=== PATIENT | female | born 1950 | race Two or more races ===

== ENCOUNTER 2016-08-16 00:28 | Inpatient (IN) | payer MEDICAID, MEDICARE ==
[~2016-08-16] VITALS: Ht 154.9 cm; Wt 61.9 kg
[~2016-08-16 00:28] MED LIST: ACET500C PO; ALBUAER3 IN; ATE50T GT; ERGO1CAP23 PO; FLUO20CA90 PO; FLUT100A INH; METF-316; TRAZ100T2 PO
[2016-08-16] MEDS ORDERED: SODIUM CHLORIDE 0.9% 1,000 ML IVB ONE (01:30)
[2016-08-16] MEDS ORDERED: HYDROmorphone HCL 2 MG/ML VL IV ONE ×2 (01:30→05:00)
[2016-08-16] MEDS ORDERED: ONDANSETRON HCL 4 MG/2 ML VIAL IV ONE ×2 (01:30→16:45)
[2016-08-16 02:12] LABS: Basophils # (auto) 0 uL; DEFINITIVE VIEW TRANSMISSION; Eosinophils # (auto) 0 uL; Mean Corpuscular Hemoglobin 36.9 pg (28.0-32.0); Mean Platelet Volume 7.6 fL (7.4-10.4)
[2016-08-16 02:16] LABS: Basophils % (auto) 0.4 % (0.0-2.0); Hematocrit 39.6 % (36.0-46.0); Hemoglobin 13.3 g/dL (12.2-16.2); Lymphocytes # (auto) 0.7 uL; Mean Corpuscular Hgb Conc. 33.5 g/dL (32.0-36.0); Mean Corpuscular Volume 110.1 fL (80.0-100.0); Monocytes # (auto) 0.5 uL; Neutrophils # (auto) 7.5 uL; Neutrophils % (auto) 85.6 % (37.0-80.0); Platelet Count (auto) 206 10^3/uL (140-450); Red Cell Distribution Width 13.8 % (11.6-16.0); White Blood Cell 8.7 10^3/uL (4.4-10.8)
[2016-08-16 02:29] LABS: INR 1.15 (0.9-1.15); Partial Thromboplastin Time 27.6 sec (22.64-33.71)
[2016-08-16 02:34] LABS: Prothrombin Time 12.4 sec (9.37-12.3)
[2016-08-16 02:35] LABS: Albumin 3.2 g/dL (3.4-5.0); BUN/Creatinine Ratio 16.7; Calcium 7.9 mg/dL (8.5-10.1); Magnesium 1.8 mg/dL (1.6-2.6); Potassium 3.6 mmol/L (3.5-5.1)
[2016-08-16 02:38] LABS: Bilirubin, Total 1.2 mg/dL (0.2-1.0); Total Protein 7.2 g/dL (6.4-8.2)
[2016-08-16 02:44] LABS: B-Type Natriuretic Peptide 291.64 pg/mL (0-100)
[2016-08-16 02:45] LABS: Temperature: 22.9 C (20.0-25.0)
[2016-08-16] MEDS ORDERED: DEXTROSE (50%) 50ML SYRG IV PRN (05:45)
[2016-08-16] MEDS ORDERED: ACETAMINOPHEN 325 MG TAB PO PRN (05:45)
[2016-08-16] MEDS ORDERED: ALBUTEROL SULF 2.5 MG/0.5ML(0.5%) NEB SOLN NEB PRN (05:45)
[2016-08-16] MEDS ORDERED: TEMAZEPAM 15 MG CAP PO PRN (05:45)
[2016-08-16] MEDS: ACCU-CHEK COMFORT CURVE STRIP VI SCH ×3 (06:00→18:00)
[2016-08-16] MEDS: InsuLIN REG 1unit/0.01ml Soln (100units/ml) SC SCH ×3 (06:00→19:10)
[2016-08-16 08:46] VITALS: BP 110/72
[2016-08-16] MEDS ORDERED: METF-312 PO (09:00)
[2016-08-16] MEDS: ONDANSETRON HCL 4 MG/2 ML VIAL IV PRN ×2 (09:18→13:49)
[2016-08-16] MEDS: MORPHINE SULF INJ 2 MG/ML SYRINGE 1ML IV PRN ×2 (09:18→13:50)
[2016-08-16] MEDS ORDERED: ENOXAPARIN SOD 30 MG/0.3 ML SYRINGE SC SCH (10:00)
[2016-08-16] MEDS ORDERED: ENOXAPARIN SOD 40 MG/0.4 ML SYRINGE SC SCH (10:00)
[2016-08-16] MEDS: ERGOCALCIFEROL 50,000 UNIT(1.25MG) CAP PO SCH (10:30)
[2016-08-16] MEDS: FAMOTIDINE 20 MG TAB PO SCH ×2 (10:51→21:33)
[2016-08-16] MEDS: FLUoxetine HCL 20 MG CAP PO SCH (10:52)
[2016-08-16] MEDS: amLODIPine BESYLATE 5 MG TAB PO SCH (10:52)
[2016-08-16] MEDS: METOPROLOL TARTRATE 25 MG TAB PO SCH ×2 (10:52→21:33)
[2016-08-16 11:56] LABS: Urine RBC None Seen /hpf (0 - 4)
[2016-08-16 12:13] VITALS: BP 110/72
[2016-08-16 12:15] LABS: Urine Bilirubin Negative (Negative); Urine Blood Negative /uL (Negative); Urine Color Yellow (Yellow); Urine Glucose Normal (Normal); Urine Ketone Negative (Negative); Urine Nitrite Negative (Negative); Urine Squamous Epithelial Cell FEW /hpf (<5); Urine Urobilinogen Normal (Negative); Urine pH 6.5 (5.0-8.0)
[2016-08-16 13:00] VITALS: BP 119/71
[2016-08-16] MEDS ORDERED: MEPERIDINE HCL (50 MG/ML) 1 ML VIAL ONE (16:01)
[2016-08-16] MEDS ORDERED: MIDAZOLAM HCL 1MG/1ML-2 ML VIAL ONE (16:01)
[2016-08-16] MEDS ORDERED: fentaNYL CITRATE 100 MCG/2 ML VL ONE (16:01)
[2016-08-16] MEDS ORDERED: PROPOFOL 10 MG/ML 20 ML IV ONE (16:19)
[2016-08-16] MEDS ORDERED: DEXAMETHASONE SOD PHOS 10MG/1ML VIAL INJ ONE (16:19)
[2016-08-16] MEDS ORDERED: SUCCINYLCHOLINE CHLORIDE 20 MG/ML 10ML VIAL IV ONE (16:41)
[2016-08-16] MEDS ORDERED: LABETALOL HCL 5 MG/ML 4ML SYRINGE IV PRN (16:45)
[2016-08-16] MEDS ORDERED: MIDAZOLAM HCL 1MG/1ML-2 ML VIAL IV PRN (16:45)
[2016-08-16] MEDS ORDERED: hydrALAZINE HCL 20 MG/ML VL IV PRN (16:45)
[2016-08-16] MEDS ORDERED: KETOROLAC TROMETH 30 MG/ML 1ML VIAL IV ONE (16:45)
[2016-08-16] MEDS ORDERED: MORPHINE SULF INJ 2 MG/ML SYRINGE 1ML IV PRN (16:45)
[2016-08-16] MEDS ORDERED: ePHEDrine SULFATE 50 MG/ML AMP IV PRN (16:45)
[2016-08-16] MEDS ORDERED: HYDROmorphone HCL 2 MG/ML VL IV PRN ×2 (16:45→18:30)
[2016-08-16] MEDS ORDERED: PHENYLEPHRINE HCL 10 MG/ML VL ONE (16:55)
[2016-08-16] MEDS ORDERED: ONDANSETRON HCL 4 MG/2 ML VIAL IV PRN (18:30)
[2016-08-16 20:00] VITALS: BP 89/55
[2016-08-16] MEDS: traZODone HCL 50 MG TAB PO SCH (21:30)
[2016-08-16 22:08] VITALS: BP 104/64
[2016-08-17] VITALS (8 sets, daily range): BP systolic 89–120; BP diastolic 47–71
[2016-08-17] MEDS: ceFAZolin 1GM/50ML D5W 50 ML IV SCH ×5 (00:31→23:12)
[2016-08-17] MEDS: InsuLIN REG 1unit/0.01ml Soln (100units/ml) SC SCH ×4 (00:31→18:00)
[2016-08-17] MEDS: ACCU-CHEK COMFORT CURVE STRIP VI SCH ×4 (06:10→18:00)
[2016-08-17 06:57] LABS: Albumin 2.5 g/dL (3.4-5.0); BUN/Creatinine Ratio 15.6; Calcium 7.3 mg/dL (8.5-10.1); Potassium 3.9 mmol/L (3.5-5.1)
[2016-08-17 07:11] LABS: Bilirubin, Total 0.9 mg/dL (0.2-1.0); Total Protein 5.8 g/dL (6.4-8.2)
[2016-08-17 09:36] LABS: Basophils # (auto) 0 uL; Basophils % (auto) 0.2 % (0.0-2.0); DEFINITIVE VIEW TRANSMISSION; Eosinophils # (auto) 0.1 uL; Eosinophils % (auto) 0.8 % (0.0-7.0); Hemoglobin 10.1 g/dL (12.2-16.2); Lymphocytes % (auto) 11.1 % (10.0-50.0); Mean Corpuscular Hemoglobin 37.3 pg (28.0-32.0); Mean Corpuscular Hgb Conc. 33.7 g/dL (32.0-36.0); Mean Corpuscular Volume 110.7 fL (80.0-100.0); Mean Platelet Volume 8.4 fL (7.4-10.4); Monocytes # (auto) 0.9 uL; Neutrophils % (auto) 77.9 % (37.0-80.0); Platelet Count (auto) 161 10^3/uL (140-450); Red Cell Distribution Width 13.7 % (11.6-16.0)
[2016-08-17] MEDS: amLODIPine BESYLATE 5 MG TAB PO SCH (10:00)
[2016-08-17] MEDS ORDERED: ENOXAPARIN SOD 40 MG/0.4 ML SYRINGE SC SCH (10:00)
[2016-08-17] MEDS: ENOXAPARIN SOD 40 MG/0.4 ML SYRINGE SC SCH (10:08)
[2016-08-17] MEDS: FLUoxetine HCL 20 MG CAP PO SCH (10:08)
[2016-08-17] MEDS: FAMOTIDINE 20 MG TAB PO SCH ×2 (10:08→21:17)
[2016-08-17] MEDS: METOPROLOL TARTRATE 25 MG TAB PO SCH ×2 (10:14→21:17)
[2016-08-17] MEDS: MORPHINE SULF INJ 2 MG/ML SYRINGE 1ML IV PRN (10:15)
[2016-08-17] MEDS: NICOTINE 21MG/24 HR TOPICAL PATCH TD SCH (17:30)
[2016-08-17] MEDS: HYDROcodone-ACET 5/325MG TAB PO PRN (20:44)
[2016-08-17] MEDS: traZODone HCL 50 MG TAB PO SCH (21:16)
[2016-08-18] VITALS (12 sets, daily range): BP systolic 99–118; BP diastolic 53–69
[2016-08-18] MEDS: ACCU-CHEK COMFORT CURVE STRIP VI SCH ×5 (00:13→23:44)
[2016-08-18] MEDS: ceFAZolin 1GM/50ML D5W 50 ML IV SCH ×4 (01:23→18:17)
[2016-08-18] MEDS: InsuLIN REG 1unit/0.01ml Soln (100units/ml) SC SCH ×5 (05:26→23:44)
[2016-08-18 07:39] LABS: Hematocrit 24.3 % (36.0-46.0); Hemoglobin 8.2 g/dL (12.2-16.2)
[2016-08-18] MEDS: HYDROcodone-ACET 5/325MG TAB PO PRN ×3 (08:35→21:10)
[2016-08-18] MEDS: METOPROLOL TARTRATE 25 MG TAB PO SCH ×2 (09:40→21:18)
[2016-08-18] MEDS: FAMOTIDINE 20 MG TAB PO SCH ×2 (09:42→21:11)
[2016-08-18] MEDS: FLUoxetine HCL 20 MG CAP PO SCH (09:42)
[2016-08-18] MEDS: NICOTINE 21MG/24 HR TOPICAL PATCH TD SCH (09:46)
[2016-08-18] MEDS: amLODIPine BESYLATE 5 MG TAB PO SCH (09:52)
[2016-08-18] MEDS: ENOXAPARIN SOD 40 MG/0.4 ML SYRINGE SC SCH (09:52)
[2016-08-18] MEDS: MORPHINE SULF INJ 2 MG/ML SYRINGE 1ML IV PRN (16:47)
[2016-08-18] MEDS ORDERED: FUROSEMIDE 20 MG/2 ML VIAL IV ONE (18:00)
[2016-08-18] MEDS: traZODone HCL 50 MG TAB PO SCH (21:11)
[2016-08-19] MEDS: MORPHINE SULF INJ 2 MG/ML SYRINGE 1ML IV PRN ×5 (03:26→22:05)
[2016-08-19 05:00] VITALS: BP 99/67
[2016-08-19] MEDS: InsuLIN REG 1unit/0.01ml Soln (100units/ml) SC SCH ×4 (05:25→23:45)
[2016-08-19] MEDS: ACCU-CHEK COMFORT CURVE STRIP VI SCH ×4 (05:25→23:45)
[2016-08-19 08:02] LABS: Hematocrit 33.3 % (36.0-46.0); Hemoglobin 11.2 g/dL (12.2-16.2)
[2016-08-19 09:00] VITALS: BP 97/60
[2016-08-19] MEDS: FLUoxetine HCL 20 MG CAP PO SCH (10:00)
[2016-08-19] MEDS: FAMOTIDINE 20 MG TAB PO SCH ×2 (10:00→21:09)
[2016-08-19] MEDS: amLODIPine BESYLATE 5 MG TAB PO SCH (10:00)
[2016-08-19] MEDS: NICOTINE 21MG/24 HR TOPICAL PATCH TD SCH (10:00)
[2016-08-19] MEDS: ENOXAPARIN SOD 40 MG/0.4 ML SYRINGE SC SCH ×2 (10:00)
[2016-08-19] MEDS: METOPROLOL TARTRATE 25 MG TAB PO SCH ×2 (10:00→21:09)
[2016-08-19] MEDS: ONDANSETRON HCL 4 MG/2 ML VIAL IV PRN ×2 (12:32→17:59)
[2016-08-19 13:00] VITALS: BP 98/55
[2016-08-19 17:00] VITALS: BP_SYST 104; BP_SYST 196; BP_DIAS 58; BP_DIAS 84
[2016-08-19] MEDS: traZODone HCL 50 MG TAB PO SCH (21:09)
[2016-08-19 22:00] VITALS: BP 96/58
[2016-08-20 01:03] VITALS: BP 96/58
[2016-08-20] MEDS: MORPHINE SULF INJ 2 MG/ML SYRINGE 1ML IV PRN ×4 (03:25→21:13)
[2016-08-20 05:00] VITALS: BP 101/66
[2016-08-20] MEDS: ACCU-CHEK COMFORT CURVE STRIP VI SCH ×4 (05:36→23:30)
[2016-08-20] MEDS: InsuLIN REG 1unit/0.01ml Soln (100units/ml) SC SCH ×4 (05:36→23:30)
[2016-08-20 08:01] LABS: Hematocrit 31.8 % (36.0-46.0); Hemoglobin 10.8 g/dL (12.2-16.2)
[2016-08-20 09:00] VITALS: BP 113/71
[2016-08-20] MEDS: FLUoxetine HCL 20 MG CAP PO SCH (10:43)
[2016-08-20] MEDS: amLODIPine BESYLATE 5 MG TAB PO SCH (10:43)
[2016-08-20] MEDS: FAMOTIDINE 20 MG TAB PO SCH ×2 (10:44→21:13)
[2016-08-20] MEDS: ENOXAPARIN SOD 40 MG/0.4 ML SYRINGE SC SCH (10:44)
[2016-08-20] MEDS: NICOTINE 21MG/24 HR TOPICAL PATCH TD SCH (10:45)
[2016-08-20] MEDS: ONDANSETRON HCL 4 MG/2 ML VIAL IV PRN ×2 (10:45→15:23)
[2016-08-20] MEDS: METOPROLOL TARTRATE 25 MG TAB PO SCH ×2 (10:49→21:20)
[2016-08-20 13:00] VITALS: BP 111/65
[2016-08-20] MEDS: HYDROcodone-ACET 5/325MG TAB PO PRN ×2 (13:57→18:17)
[2016-08-20 17:00] VITALS: BP 127/70
[2016-08-20] MEDS ORDERED: DOCUSATE SOD 100 MG CAP PO PRN (18:00)
[2016-08-20] MEDS: traZODone HCL 50 MG TAB PO SCH (21:13)
[2016-08-20 22:21] VITALS: BP 102/58
[2016-08-21] MEDS: MORPHINE SULF INJ 2 MG/ML SYRINGE 1ML IV PRN ×3 (05:26→20:04)
[2016-08-21] MEDS: ACCU-CHEK COMFORT CURVE STRIP VI SCH ×3 (05:27→18:00)
[2016-08-21] MEDS: InsuLIN REG 1unit/0.01ml Soln (100units/ml) SC SCH ×3 (05:27→18:00)
[2016-08-21 05:45] VITALS: BP 96/50
[2016-08-21 08:00] VITALS: BP 108/54
[2016-08-21] MEDS ORDERED: RIVA10TA PO (08:34)
[2016-08-21 09:12] LABS: Hematocrit 35.4 % (36.0-46.0); Hemoglobin 11.9 g/dL (12.2-16.2)
[2016-08-21] MEDS: ENOXAPARIN SOD 40 MG/0.4 ML SYRINGE SC SCH (09:36)
[2016-08-21] MEDS: FLUoxetine HCL 20 MG CAP PO SCH (09:36)
[2016-08-21] MEDS: FAMOTIDINE 20 MG TAB PO SCH ×2 (09:36→21:41)
[2016-08-21] MEDS: NICOTINE 21MG/24 HR TOPICAL PATCH TD SCH (09:37)
[2016-08-21] MEDS: METOPROLOL TARTRATE 25 MG TAB PO SCH ×2 (09:41→21:52)
[2016-08-21] MEDS: amLODIPine BESYLATE 5 MG TAB PO SCH (09:42)
[2016-08-21] MEDS ORDERED: LACTULOSE 20Gm/30ML SOLN PO ONE (11:15)
[2016-08-21] MEDS: ceFAZolin 1GM/50ML D5W 50 ML IV SCH ×2 (11:57→18:30)
[2016-08-21 13:00] VITALS: BP 90/52
[2016-08-21] MEDS: HYDROcodone-ACET 5/325MG TAB PO PRN (15:13)
[2016-08-21 17:00] VITALS: BP 104/57
[2016-08-21] MEDS: traZODone HCL 50 MG TAB PO SCH (21:41)
[2016-08-21 21:42] VITALS: BP 149/43
[2016-08-22] MEDS: ACCU-CHEK COMFORT CURVE STRIP VI SCH ×4 (00:10→17:13)
[2016-08-22] MEDS: ceFAZolin 1GM/50ML D5W 50 ML IV SCH ×4 (00:10→17:12)
[2016-08-22] MEDS: InsuLIN REG 1unit/0.01ml Soln (100units/ml) SC SCH ×4 (00:28→17:19)
[2016-08-22] MEDS: MORPHINE SULF INJ 2 MG/ML SYRINGE 1ML IV PRN ×5 (00:29→21:16)
[2016-08-22 05:26] VITALS: BP 98/59
[2016-08-22 08:00] VITALS: BP 106/60
[2016-08-22 09:04] VITALS: BP 106/60
[2016-08-22] MEDS: amLODIPine BESYLATE 5 MG TAB PO SCH (10:00)
[2016-08-22] MEDS ORDERED: LACTULOSE 20Gm/30ML SOLN PO ONE (10:00)
[2016-08-22] MEDS: ENOXAPARIN SOD 40 MG/0.4 ML SYRINGE SC SCH (10:56)
[2016-08-22] MEDS: FAMOTIDINE 20 MG TAB PO SCH ×2 (10:57→22:02)
[2016-08-22] MEDS: NICOTINE 21MG/24 HR TOPICAL PATCH TD SCH (10:57)
[2016-08-22] MEDS: FLUoxetine HCL 20 MG CAP PO SCH (10:57)
[2016-08-22] MEDS: METOPROLOL TARTRATE 25 MG TAB PO SCH ×2 (10:58→22:00)
[2016-08-22 11:12] LABS: Hematocrit 36.2 % (36.0-46.0); Hemoglobin 11.9 g/dL (12.2-16.2)
[2016-08-22] MEDS ORDERED: BUPIVACAINE 0.25% INJ 50ML VIAL ONE (12:08)
[2016-08-22] MEDS ORDERED: METHYLENE BLUE 0.5% 5MG/ML 10ml AMP IV ONE (12:08)
[2016-08-22] MEDS ORDERED: LIDOCAINE W/ EPINEPHRINE 1 % INJ 30ML ONE (12:08)
[2016-08-22 13:00] VITALS: BP 112/61
[2016-08-22 17:00] VITALS: BP 116/73
[2016-08-22 22:00] VITALS: BP 111/68
[2016-08-22] MEDS: traZODone HCL 50 MG TAB PO SCH (22:02)
[2016-08-23] VITALS (7 sets, daily range): BP systolic 99–118; BP diastolic 60–72
[2016-08-23] MEDS: ACCU-CHEK COMFORT CURVE STRIP VI SCH ×5 (00:08→22:03)
[2016-08-23] MEDS: ceFAZolin 1GM/50ML D5W 50 ML IV SCH ×5 (00:09→23:57)
[2016-08-23] MEDS: MORPHINE SULF INJ 2 MG/ML SYRINGE 1ML IV PRN ×5 (03:55→20:22)
[2016-08-23] MEDS: InsuLIN REG 1unit/0.01ml Soln (100units/ml) SC SCH ×5 (06:00→22:02)
[2016-08-23 09:06] LABS: Hematocrit 36.6 % (36.0-46.0); Hemoglobin 11.9 g/dL (12.2-16.2)
[2016-08-23] MEDS: NICOTINE 21MG/24 HR TOPICAL PATCH TD SCH (09:59)
[2016-08-23] MEDS: ENOXAPARIN SOD 40 MG/0.4 ML SYRINGE SC SCH (09:59)
[2016-08-23] MEDS: amLODIPine BESYLATE 5 MG TAB PO SCH (10:00)
[2016-08-23] MEDS: FAMOTIDINE 20 MG TAB PO SCH ×2 (10:00→22:02)
[2016-08-23] MEDS: FLUoxetine HCL 20 MG CAP PO SCH (10:00)
[2016-08-23] MEDS: METOPROLOL TARTRATE 25 MG TAB PO SCH ×2 (10:00→22:02)
[2016-08-23] MEDS: HYDROcodone-ACET 5/325MG TAB PO PRN (10:33)
[2016-08-23] MEDS: ERGOCALCIFEROL 50,000 UNIT(1.25MG) CAP PO SCH (10:33)
[2016-08-23] MEDS: traZODone HCL 50 MG TAB PO SCH (22:02)
[2016-08-24] MEDS: MORPHINE SULF INJ 2 MG/ML SYRINGE 1ML IV PRN ×4 (04:05→17:48)
[2016-08-24 05:00] VITALS: BP 99/45
[2016-08-24] MEDS: InsuLIN REG 1unit/0.01ml Soln (100units/ml) SC SCH ×3 (05:48→17:49)
[2016-08-24] MEDS: ceFAZolin 1GM/50ML D5W 50 ML IV SCH ×3 (05:48→17:18)
[2016-08-24] MEDS: ACCU-CHEK COMFORT CURVE STRIP VI SCH ×3 (05:49→17:49)
[2016-08-24 07:30] VITALS: BP 108/62
[2016-08-24 07:55] LABS: Hematocrit 35.7 % (36.0-46.0); Hemoglobin 11.6 g/dL (12.2-16.2)
[2016-08-24 09:00] VITALS: BP 108/62
[2016-08-24] MEDS: ENOXAPARIN SOD 40 MG/0.4 ML SYRINGE SC SCH (10:07)
[2016-08-24] MEDS: METOPROLOL TARTRATE 25 MG TAB PO SCH ×2 (10:08→21:44)
[2016-08-24] MEDS: FLUoxetine HCL 20 MG CAP PO SCH (10:08)
[2016-08-24] MEDS: NICOTINE 21MG/24 HR TOPICAL PATCH TD SCH (10:08)
[2016-08-24] MEDS: FAMOTIDINE 20 MG TAB PO SCH ×2 (10:08→21:31)
[2016-08-24] MEDS: amLODIPine BESYLATE 5 MG TAB PO SCH (10:09)
[2016-08-24 20:00] VITALS: BP 93/64
[2016-08-24 21:17] VITALS: BP 84/57
[2016-08-24] MEDS: traZODone HCL 50 MG TAB PO SCH (21:32)
[2016-08-25] MEDS: ceFAZolin 1GM/50ML D5W 50 ML IV SCH ×3 (00:19→12:00)
[2016-08-25] MEDS: ACCU-CHEK COMFORT CURVE STRIP VI SCH ×3 (00:28→12:00)
[2016-08-25] MEDS: HYDROcodone-ACET 5/325MG TAB PO PRN ×3 (02:11→12:28)
[2016-08-25 05:18] VITALS: BP 102/62
[2016-08-25] MEDS: InsuLIN REG 1unit/0.01ml Soln (100units/ml) SC SCH ×3 (06:00→12:00)
[2016-08-25 07:30] VITALS: BP 98/64
[2016-08-25] MEDS ORDERED: CEPH-37 PO (08:11)
[2016-08-25 08:18] LABS: Hematocrit 36.1 % (36.0-46.0); Hemoglobin 11.8 g/dL (12.2-16.2)
[2016-08-25] MEDS: FAMOTIDINE 20 MG TAB PO SCH (08:39)
[2016-08-25] MEDS: MORPHINE SULF INJ 2 MG/ML SYRINGE 1ML IV PRN (08:39)
[2016-08-25] MEDS: FLUoxetine HCL 20 MG CAP PO SCH (08:39)
[2016-08-25 08:52] VITALS: BP 98/61
[2016-08-25 09:10] VITALS: BP 98/61
[2016-08-25] MEDS: METOPROLOL TARTRATE 25 MG TAB PO SCH (10:00)
[2016-08-25] MEDS: NICOTINE 21MG/24 HR TOPICAL PATCH TD SCH (10:00)
[2016-08-25] MEDS: amLODIPine BESYLATE 5 MG TAB PO SCH (10:00)
[2016-08-25] MEDS: ENOXAPARIN SOD 40 MG/0.4 ML SYRINGE SC SCH (12:30)
[2016-08-25 13:46] VITALS: BP 102/57
[2016-08-28] MEDS ORDERED: CALCTAB25 PO (18:52)
[2016-08-28] MEDS ORDERED: METO25TA5 PO (18:52)
[2016-08-28] MEDS ORDERED: METF-314 PO (18:52)
[2016-08-28] MEDS ORDERED: ATOR40TA52 PO (18:52)
[2016-08-28] MEDS ORDERED: AML5T PO (18:52)
[2016-08-28] MEDS ORDERED: NOR5T PO (18:55)
== END 2016-08-25 13:30 | disposition home health service (06) | DRG 481 ==
LOC: ER 00:28 → OVERFLOW 00:29 → WEST WING 09:12 → EAST 09:13 → WEST WING 09:30
PROVIDERS: ADMIT Nurse Practitioner; ATTEND Internal Medicine
PROC: BQ101ZZ Fluoroscopy of Right Hip using Low Osmolar Contrast (ICD-10-PCS; 2016-08-16)
PROC: 0QS606Z Reposition Right Upper Femur with Intramedullary Internal Fixation Device, Open Approach (ICD-10-PCS; principal; 2016-08-16 16:01)
PROC: 30233N1 Transfusion of Nonautologous Red Blood Cells into Peripheral Vein, Percutaneous Approach (ICD-10-PCS; 2016-08-18)
DX: M84.451A Pathological fracture, right femur, initial encounter for fracture (principal); E44.1 Mild protein-calorie malnutrition; F19.20 Other psychoactive substance dependence, uncomplicated; R71.0 Precipitous drop in hematocrit; I10 Essential (primary) hypertension; M85.80 Other specified disorders of bone density and structure, unspecified site; W01.0XXA Fall on same level from slipping, tripping and stumbling without subsequent striking against object, initial encounter; E11.9 Type 2 diabetes mellitus without complications; F17.210 Nicotine dependence, cigarettes, uncomplicated; I25.10 Atherosclerotic heart disease of native coronary artery without angina pectoris; F41.9 Anxiety disorder, unspecified; Z88.6 Allergy status to analgesic agent; Z88.5 Allergy status to narcotic agent; Z88.8 Allergy status to other drugs, medicaments and biological substances; Z68.25 Body mass index [BMI] 25.0-25.9, adult; Z81.8 Family history of other mental and behavioral disorders; Z82.0 Family history of epilepsy and other diseases of the nervous system; Z87.442 Personal history of urinary calculi; Z83.3 Family history of diabetes mellitus; Z91.19 Patient's noncompliance with other medical treatment and regimen; Z98.1 Arthrodesis status; Y93.89 Activity, other specified; Y92.89 Other specified places as the place of occurrence of the external cause; Y99.8 Other external cause status; Z79.84 Long term (current) use of oral hypoglycemic drugs; Z79.899 Other long term (current) drug therapy; Z90.710 Acquired absence of both cervix and uterus
CPT/HCPCS: 36415; 71010; 73501; 73502; 73700; 76001; 76705; 80053; 80307; 81001; 82962; 83735; 83880; 85014; 85018; 85025; 85610; 85730; 86850; 86900; 86901; 86920; 87086; 93005; 93306; 94761; 96361; 96374; 96375; 96376; 97001; 97110; 97116; 97530; A4565; J0330; J0690; J1100; J1815; J1885; J2250; J2405; J2704; J3490

== ENCOUNTER 2018-08-02 00:23 | Inpatient (IN) | payer MEDICARE, MEDICAID | END 2018-08-08 23:47 | disposition hospice, home (50) | LOC: ER 00:23 → OVERFLOW 11:17 → DOU IN ICU 14:19 | PROC: 0W9G3ZZ Drainage of Peritoneal Cavity, Percutaneous Approach (ICD-10-PCS; principal; ~2018-08-02) | DX: A41.9 Sepsis, unspecified organism (principal); E43 Unspecified severe protein-calorie malnutrition; J90 Pleural effusion, not elsewhere classified; E87.1 Hypo-osmolality and hyponatremia; N39.0 Urinary tract infection, site not specified; K66.8 Other specified disorders of peritoneum; E11.21 Type 2 diabetes mellitus with diabetic nephropathy; K70.31 Alcoholic cirrhosis of liver with ascites; J44.9 Chronic obstructive pulmonary disease, unspecified; E11.9 Type 2 diabetes mellitus without complications; F17.210 Nicotine dependence, cigarettes, uncomplicated; I10 Essential (primary) hypertension; I25.10 Atherosclerotic heart disease of native coronary artery without angina pectoris; K57.90 Diverticulosis of intestine, part unspecified, without perforation or abscess without bleeding; K80.20 Calculus of gallbladder without cholecystitis without obstruction; Z79.01 Long term (current) use of anticoagulants; I73.9 Peripheral vascular disease, unspecified ==